=== PATIENT | male | born 1955 | race Caucasian/White ===

== ENCOUNTER → 2021-03-23 13:31 | Outpatient (BNVA) | payer MEDICARE, MEDICAID, SELFPAY | PROVIDERS: PCP Internal Medicine; Referring Provider Internal Medicine; Visit Provider Surgery | DX: L02.91 Cutaneous abscess, unspecified (principal) | CPT/HCPCS: 10061; 99212 ==

== ENCOUNTER → 2021-04-01 10:06 | Outpatient (BNVA) | payer MEDICARE, MEDICAID, SELFPAY | PROVIDERS: PCP Internal Medicine; Referring Provider Internal Medicine; Visit Provider Surgery | DX: Z48.817 Encounter for surgical aftercare following surgery on the skin and subcutaneous tissue (principal); Z87.2 Personal history of diseases of the skin and subcutaneous tissue | CPT/HCPCS: 99212 ==

== ENCOUNTER 2021-12-28 11:54 | Outpatient (REF) | payer MEDICARE, MEDICAID, SELFPAY ==
[2021-12-28 13:48] LABS: Estimated Average Glucose 94 mg/dL; Hemoglobin A1c % 4.9 %
[2021-12-28 14:03] LABS: Prostate Specific Antigen Scr 0.25 ng/mL (<0.05-4.0)
[2021-12-28 14:06] LABS: Alanine Aminotransferase 13 U/L (0-40); Albumin Level 4.1 g/dL (3.5-5.0); Alkaline Phosphatase 83 U/L (39-117); Anion Gap 18 (12-20); Aspartate Amino Transferase 14 U/L (5-37); Blood Urea Nitrogen 42 mg/dL (9-16); Calcium 8.9 mg/dL (8.4-10.2); Carbon Dioxide 29 mmol/L (22-29); Chloride 99 mmol/L (96-108); Cholesterol 141 mg/dL; Estimated Glomerular Filt Rate 7; Glucose Fasting 112 mg/dL (60-99); HDL Cholesterol 32 mg/dL; Iron 42 mcg/dL (45-160); LDL Cholesterol Calculated 90 mg/dl; Percent Iron Saturation 18 % (15-50); Phosphorus 7.7 mg/dL (2.7-4.5); Potassium 4.5 mmol/L (3.3-5.1); Sodium 141 mmol/L (135-145); Total Iron Binding Capacity 239 mcg/dL (228-428); Total Protein 8.2 g/dL (6.5-8.0); Triglycerides 96 mg/dL; Unsaturated Iron Binding 197 ug/dL
== END 2021-12-28 11:55 | disposition home or self-care (01) ==
LOC: HO.10HDL 11:54
PROVIDERS: PCP Internal Medicine; Visit Provider Internal Medicine
DX: Z12.5 Encounter for screening for malignant neoplasm of prostate (principal); I12.9 Hypertensive chronic kidney disease with stage 1 through stage 4 chronic kidney disease, or unspecified chronic kidney disease; N18.9 Chronic kidney disease, unspecified; E11.22 Type 2 diabetes mellitus with diabetic chronic kidney disease; D64.9 Anemia, unspecified; N40.0 Benign prostatic hyperplasia without lower urinary tract symptoms; E83.30 Disorder of phosphorus metabolism, unspecified
CPT/HCPCS: 36415; 80053; 80061; 83036; 83540; 84100; 84153